=== PATIENT | male | born 1985 | race African-American/Black ===

== ENCOUNTER 2016-11-17 18:16 | Emergency (ER) | payer OTHER ==
[~2016-11-17] VITALS: Ht 167.6 cm; Wt 63.5 kg
--- NOTE | ~2016-11-17 | EKG ---
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
[~2016-11-17 18:16] MED LIST: CLARITIN-D 12 H1 TA1 PO; PREDNISONE 20 M20 MG PO; TESSALON PERLE100 MG PO; VENTOLIN HFA 1818 GM INH
[2016-11-17] MEDS ORDERED: IBUPROFEN 800800 M1 PO (19:42)
[2016-11-17 20:30] VITALS: BP 140/104
== END 2016-11-17 20:30 | disposition still patient (30) ==
LOC: ER 18:16
DX: R07.89 Other chest pain (principal)

== ENCOUNTER 2017-08-08 12:08 | Emergency (ER) | payer OTHER ==
[~2017-08-08] VITALS: Ht 170.2 cm; Wt 68.0 kg
[~2017-08-08 12:08] MED LIST changes: +IBUPROFEN 800800 M1 PO
[2017-08-08] MEDS ORDERED: PENICILLIN V P500 MG PO (12:20)
[2017-08-08] MEDS ORDERED: HYDROCODONE-AP1 EAC6 PO (12:20)
[2017-08-08 12:45] VITALS: BP 125/92
== END 2017-08-08 12:54 | disposition home or self-care (01) ==
LOC: ER 12:08
DX: K02.9 Dental caries, unspecified (principal)